=== PATIENT | female | born 1975 | race Caucasian/White ===

== ENCOUNTER → 2023-02-15 14:00 | Outpatient (CLI) | payer OTHER, SELFPAY ==
--- NOTE | ~2023-02-15 | MM_ITS ---
EXAMINATION: MM screening [facility] BI w keisha HISTORY: Screening TECHNIQUE: Craniocaudal and mediolateral oblique 3-D tomosynthesis images were obtained and synthetic 2-D images were generated. CAD analysis was submitted and interpreted. COMPARISON: No prior mammogram is available for comparison at this institution. BREAST PARENCHYMAL COMPOSITION: FINDINGS: There is no evidence of suspicious mass, calcification, or architectural distortion to sugg est malignancy in either breast. There has been no suspicious interval change. IMPRESSION: 1. No mammographic evidence of malignancy. 2. Recommend routine screening mammography in one year. BI-RADS Category 1: Negative Reviewed, dictated and finalized at location A.
== END ==
PROVIDERS: PCP Nurse Practitioner; Visit Provider Nurse Practitioner
DX: Z12.31 Encounter for screening mammogram for malignant neoplasm of breast (principal)
CPT/HCPCS: 77063; 77067

== ENCOUNTER 2023-08-30 14:03 | Outpatient (CLI) | payer OTHER, SELFPAY ==
--- NOTE | ~2023-08-30 | US_ITS ---
EXAMINATION: US soft tissue UE RT DATE: 08/30/2023 14:21 INDICATION: Palpable lumps at the posterior right elbow TECHNIQUE: Multiple grayscale and Doppler ultrasound images of the region of concern posterior to the right elbow were obtained. COMPARISON: None FINDINGS: At the first location there is a 9 x 2 x 9 mm lenticular hypoechoic nodule without internal vascular flow on color Doppler. The nodule is located within the subcutis fat within 2.5 mm the skin surface. The surrounding subcutaneous fat and underlying musculature are unremarkable. No abnormal masses or f luid collections identified at the site of the second palpable abnormality. IMPRESSION: 1. Nonspecific 9 x 2 x 9 mm lenticular nodule at the first region of concern which could represent ne oplasm with the elongated lenticular appearance suggesting possibility of schwannoma or peripheral ne rve sheath tumor. Consider ultrasound-guided biopsy. 2. No correlate identified at the side of the second palpable abnormality. Reviewed, dictated and finalized at location A. IMPRESSION: 1. Nonspecific 9 x 2 x 9 mm lenticular nodule at the first region of concern wh ich could represent neoplasm with the elongated lenticular appearance suggestin g possibility of schwannoma or peripheral nerve sheath tumor. Consider ultrasou nd-guided biopsy. 2. No correlate identified at the side of the second palpable abnormality.
== END 2023-08-30 14:04 ==
LOC: MICIMG 14:04
DX: R22.31 Localized swelling, mass and lump, right upper limb (principal)
CPT/HCPCS: 76882